=== PATIENT | female | born 1995 | race Caucasian/White ===

== ENCOUNTER → 2017-05-19 | Emergency (ER) | payer OTHER ==
[~2017-05-19] VITALS: Ht 152.4 cm; Wt 75.7 kg
== END | disposition home or self-care (01) ==
LOC: ER 17:18
DX: J06.9 Acute upper respiratory infection, unspecified (principal); B34.9 Viral infection, unspecified

== ENCOUNTER → 2018-03-19 | Emergency (ER) | payer OTHER ==
[~2018-03-19] VITALS: Ht 152.4 cm; Wt 899.0 kg
== END | disposition home or self-care (01) ==
LOC: ER 15:40
DX: K11.21 Acute sialoadenitis (principal)

== ENCOUNTER 2022-12-27 15:44 | Emergency (ER) | payer OTHER ==
[~2022-12-27] VITALS: Ht 152.4 cm; Wt 82.6 kg
== END 2022-12-27 22:25 | disposition home or self-care (01) ==
LOC: ER 15:44
DX: R59.0 Localized enlarged lymph nodes (principal)

== ENCOUNTER 2023-05-07 18:10 | Emergency (ER) | payer OTHER ==
[~2023-05-07] VITALS: Ht 152.4 cm; Wt 92.5 kg
[2023-05-07] MEDS ORDERED: CETIRIZINE HCL 5 MG/5 ML ML PO ONE (20:45)
[2023-05-07] MEDS ORDERED: ACETAMINOPHEN 500 MG GEL..CAP PO ONE (20:45)
[2023-05-07] MEDS ORDERED: GUAIFENESIN/DEXTROMETHORPHAN 100 MG/5 ML ML PO ONE (20:45)
[2023-05-07] MEDS ORDERED: ONDANSETRON HCL 2 MG/ML VIAL IV ONE (20:45)
[2023-05-07 21:26] LABS: HEMATOCRIT 37.2 % (36.0-45.00); HEMOGLOBIN 12.7 g/dL (12.0-15.00); MEAN CELL VOLUME 85.2 fL (80.00-100.00); MEAN CORPUSCULAR HEMOGLOBIN 29.1 pg (27.00-32.0); MEAN CORPUSCULAR HGB CONC 34.1 g/dl (32.0-36.0); PLATELET COUNT 240 K/uL (150-450); RED BLOOD COUNT 4.37 M/uL (4.00-6.00); RED CELL DISTRIBUTION WIDTH 13.4 % (11.5-14.5)
[2023-05-07] MEDS ORDERED: TUSSIN DM LIQU118 ML PO (22:26)
[2023-05-07] MEDS ORDERED: OSEL75CA PO (22:26)
[2023-05-07] MEDS ORDERED: ZYRTEC10 MG PO (23:03)
[2023-05-07] MEDS ORDERED: SALINE NASAL SP88 ML NASAL (23:03)
== END 2023-05-07 23:22 | disposition home or self-care (01) ==
LOC: ER 18:10
PROVIDERS: Nurse Practitioner Family
DX: J10.1 Influenza due to other identified influenza virus with other respiratory manifestations (principal); Z20.822 Contact with and (suspected) exposure to COVID-19

== ENCOUNTER 2024-08-08 10:53 | Outpatient (CLI) | payer OTHER ==
[~2024-08-08 10:53] MED LIST: OSEL75CA PO; SALINE NASAL SP88 ML NASAL; TUSSIN DM LIQU118 ML PO; ZYRTEC10 MG PO
== END 2024-08-08 10:54 | disposition home or self-care (01) ==
LOC: PRENATAL 10:53
PROVIDERS: ATTEND Obstetrics & Gynecology Maternal & Fetal Medicine
DX: O44.00 Complete placenta previa NOS or without hemorrhage, unspecified trimester (principal); O09.219 Supervision of pregnancy with history of pre-term labor, unspecified trimester; Z3A.19 19 weeks gestation of pregnancy

== ENCOUNTER 2024-09-19 20:32 | Emergency (ER) | payer OTHER ==
[~2024-09-19] VITALS: Ht 152.4 cm; Wt 89.8 kg
[2024-09-19] MEDS ORDERED: PRENATE DHA SO1 EAC1 (20:43)
[2024-09-19] MEDS ORDERED: ACETAMINOPHEN 500 MG GEL..CAP PO STA (22:32)
[2024-09-19] MEDS ORDERED: 0.9 % SODIUM CHLORIDE 1,000 ML IV STA (22:35)
[2024-09-19 23:13] LABS: BASO % 0.4 % (0.1-1.2); EOS # 0.29 (0.04-0.54); EOS % 2.2 % (0.7-7.0); LYMPH # 3.23 (1.18-3.74); LYMPH % 25.0 % (19.3-53.1); MEAN PLATELET VOLUME 11.00 fl (9.4-12.4); MONO # 0.73 (0.24-0.82); MONO % 5.7 % (4.7-12.5); NEUT # 8.55 (1.56-6.13); NEUT % 66.2 % (34.0-71.1); RED CELL DISTRIBUTION WIDTH 13.5 % (11.6-14.4)
[2024-09-20 00:01] LABS: ALT/SGPT 79.0 U/L (12-78); AST/SGOT 42.0 U/L (15-37); BILIRUBIN TOTAL 0.26 mg/dL (0.3-1.2); BUN CREA RATIO 12.0 (7.0-25.0); CREATININE SERUM 0.6 mg/dL (0.55-1.02); GFR 119.92; GLOBULINA 3.6 G/DL (2.4-3.5); GLUCOSE FASTING 99.0 mg/dL (65-100); OSMOLALITY SERUM 274.0 MOSM/KG (275-295)
[2024-09-20 00:06] LABS: TSH 2.03 uIU/mL (0.358-3.74)
[2024-09-20 00:32] LABS: URINE APPEARANCE Turbid; URINE BILIRRUBIN Small (NEGATIVE); URINE BLOOD Negative; URINE COLOR Dark Yellow; URINE KETONE 15 (NEGATIVE); URINE LEUKOCYTE Moderate; URINE NITRATE Negative; URINE PROTEIN 30 (NEGATIVE); URINE UROBILINOGEN 1.0 E.U./dl
[2024-09-20 00:35] LABS: URINE EPITHELIAL CELLS 154.5 uL (0.0-38.8); URINE RBC 42.9 uL (0.0-20.8); URINE WBC 435.6 uL (0.0-23.2)
[2024-09-20 01:17] LABS: URINE BACTERIA > 9821.5 uL (0.0-1933); URINE CAST 0.87 uL (0.0-1.40); URINE CRYSTALS MANY /HPF; URINE GLUCOSE 100 MG/DL (NEGATIVE)
[2024-09-20] MEDS ORDERED: CEPHALEXIN500 MG PO (01:54)
== END 2024-09-20 01:59 ==
LOC: ER 20:32
PROVIDERS: General Practice
DX: Z34.90 Encounter for supervision of normal pregnancy, unspecified, unspecified trimester (principal); Z3A.26 26 weeks gestation of pregnancy; F41.9 Anxiety disorder, unspecified

== ENCOUNTER 2024-10-03 13:15 | Emergency (ER) | payer OTHER ==
[~2024-10-03] VITALS: Ht 162.6 cm; Wt 81.6 kg
[~2024-10-03 13:15] MED LIST changes: +CEPHALEXIN500 MG PO; +PRENATE DHA SO1 EAC1
[2024-10-03 14:05] LABS: BASO % 0.4 % (0.1-1.2); EOS # 0.29 (0.04-0.54); EOS % 2.0 % (0.7-7.0); LYMPH # 2.50 (1.18-3.74); LYMPH % 17.5 % (19.3-53.1); MEAN PLATELET VOLUME 11.00 fl (9.4-12.4); MONO # 0.80 (0.24-0.82); MONO % 5.6 % (4.7-12.5); NEUT # 10.55 (1.56-6.13); NEUT % 74.1 % (34.0-71.1); RED CELL DISTRIBUTION WIDTH 13.5 % (11.6-14.4)
[2024-10-03 14:21] LABS: COVID-19 AG NEGATIVE (NEGATIVE)
[2024-10-03 18:21] VITALS: BP 110/70; O2SAT 99
== END 2024-10-03 18:23 | disposition home or self-care (01) ==
LOC: ER 13:15
PROVIDERS: Preventive Medicine Public Health & General Preventive Medicine
DX: O98.513 Other viral diseases complicating pregnancy, third trimester (principal); Z3A.28 28 weeks gestation of pregnancy; J06.9 Acute upper respiratory infection, unspecified; Z20.822 Contact with and (suspected) exposure to COVID-19

== ENCOUNTER 2024-10-06 19:16 | Emergency (ER) | payer OTHER ==
[~2024-10-06] VITALS: Ht 154.9 cm; Wt 90.3 kg
[2024-10-06] MEDS ORDERED: 0.9 % SODIUM CHLORIDE 1,000 ML IV STA (20:28)
[2024-10-06] MEDS ORDERED: ACETAMINOPHEN 500 MG GEL..CAP PO ONE ×2 (20:30)
[2024-10-06 20:50] LABS: BASO % 0.3 % (0.1-1.2); EOS # 0.06 (0.04-0.54); EOS % 0.7 % (0.7-7.0); LYMPH # 0.78 (1.18-3.74); LYMPH % 8.7 % (19.3-53.1); MEAN PLATELET VOLUME 10.90 fl (9.4-12.4); MONO # 0.75 (0.24-0.82); MONO % 8.4 % (4.7-12.5); NEUT # 7.25 (1.56-6.13); NEUT % 81.3 % (34.0-71.1); RED CELL DISTRIBUTION WIDTH 13.3 % (11.6-14.4)
[2024-10-06 21:11] LABS: URINE APPEARANCE Cloudy; URINE BILIRRUBIN Small (NEGATIVE); URINE BLOOD Negative; URINE COLOR Dark Yellow; URINE KETONE Trace (NEGATIVE); URINE LEUKOCYTE Moderate; URINE NITRATE Negative; URINE PROTEIN 30 (NEGATIVE); URINE UROBILINOGEN 1.0 E.U./dl
[2024-10-06 21:12] LABS: URINE BACTERIA 8747.8 uL (0.0-1933); URINE EPITHELIAL CELLS 92.4 uL (0.0-38.8); URINE RBC 9.8 uL (0.0-20.8); URINE WBC 311.8 uL (0.0-23.2)
[2024-10-06 21:14] LABS: BUN CREA RATIO 8.0 (7.0-25.0); CREATININE SERUM 0.5 mg/dL (0.55-1.02); GFR 148.0; GLUCOSE FASTING 115.0 mg/dL (65-100); OSMOLALITY SERUM 275.0 MOSM/KG (275-295)
[2024-10-06 21:33] LABS: COVID-19 AG POSITIVE (NEGATIVE)
[2024-10-06 21:36] LABS: URINE CAST 1.02 uL (0.0-1.40); URINE GLUCOSE 100 MG/DL (NEGATIVE)
[2024-10-06 21:37] LABS: TYPE CELLS SQUAMOUS; URINE CRYSTALS FEW /HPF; URINE MUCUS MODERATE
== END 2024-10-06 22:54 | disposition home or self-care (01) ==
LOC: ER 19:16
PROVIDERS: Emergency Medicine
DX: O98.513 Other viral diseases complicating pregnancy, third trimester (principal); U07.1 COVID-19; Z3A.28 28 weeks gestation of pregnancy

== ENCOUNTER 2024-10-31 14:30 | Outpatient (CLI) | payer OTHER | END 2024-10-31 14:31 | disposition home or self-care (01) | LOC: PRENATAL 14:30 | PROVIDERS: ATTEND Obstetrics & Gynecology Maternal & Fetal Medicine | DX: O26.849 Uterine size-date discrepancy, unspecified trimester (principal); O36.8199 Decreased fetal movements, unspecified trimester, other fetus; O09.219 Supervision of pregnancy with history of pre-term labor, unspecified trimester; Z3A.32 32 weeks gestation of pregnancy ==

== ENCOUNTER → 2024-11-21 12:07 | Outpatient (CLI) | payer OTHER ==
[~2024-11-21 12:07] MED LIST changes: +ALCOHOL PADS1 EACH TOP; +HUMULIN N100 UNIT/2 SUBCUTANEO; +HUMULIN R100 UNIT/1 SUBCUTANEO; +INSULIN SYRING1 EA29 SUBCUTANEO
== END | disposition home or self-care (01) ==
LOC: PRENATAL 12:07
PROVIDERS: ATTEND Obstetrics & Gynecology Maternal & Fetal Medicine
DX: O26.849 Uterine size-date discrepancy, unspecified trimester (principal); O36.8130 Decreased fetal movements, third trimester, not applicable or unspecified; O09.219 Supervision of pregnancy with history of pre-term labor, unspecified trimester; Z3A.35 35 weeks gestation of pregnancy

== ENCOUNTER 2024-12-05 18:49 | Inpatient (IN) | payer OTHER ==
[~2024-12-05] VITALS: Ht 152.4 cm; Wt 3.2 kg
[2024-12-05 19:09] VITALS: BP 122/77
[2024-12-05 20:01] LABS: BASO % 0.3 % (0.1-1.2); EOS # 0.14 (0.04-0.54); EOS % 1.2 % (0.7-7.0); LYMPH # 3.23 (1.18-3.74); LYMPH % 27.6 % (19.3-53.1); MEAN PLATELET VOLUME 11.90 fl (9.4-12.4); MONO # 0.71 (0.24-0.82); MONO % 6.1 % (4.7-12.5); NEUT # 7.53 (1.56-6.13); NEUT % 64.3 % (34.0-71.1); RED CELL DISTRIBUTION WIDTH 13.4 % (11.6-14.4)
[2024-12-05 20:04] LABS: URINE APPEARANCE Clear; URINE BILIRRUBIN Negative (NEGATIVE); URINE BLOOD Negative; URINE COLOR Yellow; URINE GLUCOSE Negative (NEGATIVE); URINE KETONE Trace (NEGATIVE); URINE LEUKOCYTE Moderate; URINE NITRATE Negative; URINE PROTEIN 30 (NEGATIVE); URINE UROBILINOGEN 1.0 E.U./dl
[2024-12-05 20:06] LABS: URINE BACTERIA 2108.3 uL (0.0-1933); URINE EPITHELIAL CELLS 29.8 uL (0.0-38.8); URINE RBC 2.4 uL (0.0-20.8); URINE WBC 164.4 uL (0.0-23.2)
[2024-12-05 20:09] LABS: URINE CAST 0.87 uL (0.0-1.40)
[2024-12-05 20:20] LABS: INR < 0.93
[2024-12-05 20:32] LABS: ALT/SGPT 73.0 U/L (12-78); AST/SGOT 35.0 U/L (15-37); BILIRUBIN TOTAL 0.21 mg/dL (0.3-1.2); BUN CREA RATIO 18.0 (7.0-25.0); CREATININE SERUM 0.55 mg/dL (0.55-1.02); GFR 132.59; GLOBULINA 3.8 G/DL (2.4-3.5); GLUCOSE FASTING 95.0 mg/dL (65-100); OSMOLALITY SERUM 276.0 MOSM/KG (275-295)
[2024-12-05] MEDS ORDERED: NIFEDIPINE 30 MG TAB.SA.OSM PO ONE (21:45)
[2024-12-05] MEDS ORDERED: CEFAZOLIN SODIUM 1,000 MG VIAL IV SCH (21:45)
[2024-12-05 23:23] VITALS: BP 119/76
[2024-12-06] VITALS (7 sets, daily range): BP systolic 102–131; BP diastolic 58–71
[2024-12-06] MEDS ORDERED: FAMOTIDINE/PF 20 MG/2 ML VIAL ONE (12:21)
[2024-12-06] MEDS ORDERED: FAMOTIDINE/PF 20 MG/2 ML VIAL IV ONE (12:30)
[2024-12-06] MEDS ORDERED: MORPHINE SULFATE 4 MG/ML CARTRIDGE IV ONE (23:45)
[2024-12-07 03:41] VITALS: BP 103/64
[2024-12-07 06:15] VITALS: BP 106/69; O2SAT 99
[2024-12-07] MEDS ORDERED: FAMOTIDINE/PF 20 MG/2 ML VIAL IV PUSH ONE (07:30)
[2024-12-07] MEDS ORDERED: OXYTOCIN 10 UNITS/ML VIAL ONE (11:46)
[2024-12-07] MEDS ORDERED: ERYTHROMYCIN BASE OPHT 1GM EACH TUBE OP ONE (11:47)
[2024-12-07 11:51] VITALS: BP 98/65
[2024-12-07] MEDS ORDERED: ONDANSETRON HCL 2 MG/ML VIAL ONE (12:31)
[2024-12-07] MEDS ORDERED: ONDANSETRON HCL 2 MG/ML VIAL IV ONE (12:45)
[2024-12-07] MEDS ORDERED: RINGERS SOLUTION,LACTATED 1,000 ML IV SCH (15:00)
[2024-12-07] MEDS ORDERED: MORPHINE SULFATE 4 MG/ML CARTRIDGE IV PRN (15:00)
[2024-12-07] MEDS ORDERED: KETOROLAC TROMETHAMINE 30 MG VIAL IV NR (15:00)
[2024-12-07] MEDS ORDERED: ONDANSETRON HCL 2 MG/ML VIAL IV PRN (15:00)
[2024-12-07] MEDS ORDERED: KETOROLAC TROMETHAMINE 30 MG VIAL IV SCH (15:02)
[2024-12-07 18:16] VITALS: BP 121/73
[2024-12-08] VITALS: BP 112/66
[2024-12-08 09:35] VITALS: BP 106/65
[2024-12-08] MEDS ORDERED: OxyCODONE HCL 5 MG TABLET (ROXICODONE) PO PRN (10:15)
[2024-12-08 13:01] VITALS: BP 99/65
[2024-12-08 14:28] LABS: BASO % 0.4 % (0.1-1.2); EOS # 0.12 (0.04-0.54); EOS % 0.9 % (0.7-7.0); LYMPH # 2.36 (1.18-3.74); LYMPH % 16.9 % (19.3-53.1); MEAN PLATELET VOLUME 11.70 fl (9.4-12.4); MONO # 0.93 (0.24-0.82); MONO % 6.7 % (4.7-12.5); NEUT # 10.39 (1.56-6.13); NEUT % 74.3 % (34.0-71.1); RED CELL DISTRIBUTION WIDTH 14.2 % (11.6-14.4)
[2024-12-08 16:45] VITALS: BP 116/68
[2024-12-08] MEDS ORDERED: DOCUSATE SODIUM 100MG CAP PO SCH (17:21)
[2024-12-08] MEDS ORDERED: ACETAMINOPHEN 325 MG TABLET PO SCH (18:00)
[2024-12-09 01:20] VITALS: BP 110/67
[2024-12-09 08:43] VITALS: BP 110/73
[2024-12-09 20:02] VITALS: BP 120/70
== END 2024-12-09 17:38 | disposition home or self-care (01) | DRG 785 ==
LOC: OBS/DEL 18:49 → LDR 12-06 17:23 → OB/GYN 12-06 17:23 → OBS/DEL 12-06 17:23 → O/R 12-07 13:11 → OB/GYN 12-07 15:22
PROVIDERS: General Practice; ADMIT Obstetrics & Gynecology Obstetrics; ATTEND Obstetrics & Gynecology Obstetrics
PROC: 4A1HXCZ Monitoring of Products of Conception, Cardiac Rate, External Approach (ICD-10-PCS; 2024-12-06)
PROC: 0UB70ZZ Excision of Bilateral Fallopian Tubes, Open Approach (ICD-10-PCS; 2024-12-07)
PROC: 10D00Z1 Extraction of Products of Conception, Low, Open Approach (ICD-10-PCS; principal; 2024-12-07 17:00)
DX: O34.211 Maternal care for low transverse scar from previous cesarean delivery (principal); Z30.2 Encounter for sterilization; Z37.0 Single live birth; Z3A.37 37 weeks gestation of pregnancy